=== PATIENT | female | born 1930 | race Caucasian/White ===

== ENCOUNTER → 2016-05-14 | Outpatient (CLI) | payer OTHER ==
[~2016-05-14] MED LIST: ALBUPOW26 IN; ALEN70TA55 OR; ASPI-247 PO; CALC-312 PO; FLUT110A IN; LEVO125T6 PO; MECL-87 PO; NITRSPR10 SL; TRAV0.00 OP; TRIATAB3 PO
[2016-05-14 09:41] LABS: Basophils # (auto) 0 uL; Basophils % (auto) 0.6 % (0.0-2.0); Eosinophils # (auto) 0.1 uL; Eosinophils % (auto) 1.9 % (0.0-7.0); Hematocrit 40.5 % (36.0-46.0); Hemoglobin 13.1 g/dL (12.2-16.2); Lymphocytes # (auto) 1.3 uL; Lymphocytes % (auto) 21.6 % (10.0-50.0); Mean Corpuscular Hemoglobin 28.3 pg (28.0-32.0); Mean Corpuscular Hgb Conc. 32.2 g/dL (32.0-36.0); Mean Corpuscular Volume 87.9 fL (80.0-100.0); Mean Platelet Volume 8.8 fL (7.4-10.4); Monocytes # (auto) 0.5 uL; Monocytes % (auto) 7.8 % (0.0-12.0); Neutrophils % (auto) 68.1 % (37.0-80.0); Platelet Count (auto) 337 10^3/uL (140-450); Red Cell Distribution Width 13.4 % (11.6-16.0); White Blood Cell 5.9 10^3/uL (4.4-10.8)
[2016-05-14 09:54] LABS: Urine Bilirubin Negative (Negative); Urine Blood Negative /uL (Negative); Urine Color Yellow (Yellow); Urine Glucose Normal (Normal); Urine Ketone Negative (Negative); Urine Mucus FEW (None Seen); Urine Nitrite Negative (Negative); Urine RBC 13 /hpf (0 - 4); Urine Squamous Epithelial Cell FEW /hpf (<5)
[2016-05-14 10:06] LABS: Albumin 3.6 g/dL (3.4-5.0); BUN/Creatinine Ratio 16.9; Bilirubin, Total 0.4 mg/dL (0.2-1.0); Calcium 8.6 mg/dL (8.5-10.1); Potassium 4.2 mmol/L (3.5-5.1); Total Protein 7.2 g/dL (6.4-8.2)
== END | disposition home or self-care (01) ==
LOC: LAB 08:49
PROVIDERS: ATTEND Family Medicine
DX: E78.00 Pure hypercholesterolemia, unspecified (principal); E03.9 Hypothyroidism, unspecified; N18.3 Chronic kidney disease, stage 3 (moderate); I10 Essential (primary) hypertension; Z00.00 Encounter for general adult medical examination without abnormal findings
CPT/HCPCS: 36415; 80053; 80061; 81001; 82607; 83615; 84443; 85025

== ENCOUNTER → 2016-05-22 | Outpatient (CLI) | payer OTHER | END | disposition home or self-care (01) | LOC: LAB 10:52 | PROVIDERS: ATTEND Internal Medicine | DX: E78.00 Pure hypercholesterolemia, unspecified (principal); E03.9 Hypothyroidism, unspecified; N18.3 Chronic kidney disease, stage 3 (moderate); I10 Essential (primary) hypertension; Z00.00 Encounter for general adult medical examination without abnormal findings | CPT/HCPCS: 82270 ==

== ENCOUNTER 2016-07-03 16:27 | Inpatient (IN) | payer OTHER ==
[~2016-07-03] VITALS: Ht 167.6 cm; Wt 64.6 kg
[2016-07-03 19:55] LABS: Urine Bilirubin Negative (Negative); Urine Blood Negative /uL (Negative); Urine Color Yellow (Yellow); Urine Glucose Normal (Normal); Urine Ketone Negative (Negative); Urine Nitrite Negative (Negative); Urine RBC 1 /hpf (0 - 4); Urine Squamous Epithelial Cell FEW /hpf (<5); Urine Urobilinogen Normal (Negative)
[2016-07-03 19:57] LABS: Albumin 3.3 g/dL (3.4-5.0); Anion Gap 10 (5-15); Aspartate Aminotransferase 24 U/L (15-37); BUN/Creatinine Ratio 16.9; Basophils # (auto) 0 uL; Basophils % (auto) 0.2 % (0.0-2.0); Blood Urea Nitrogen 13 mg/dL (7-18); Calcium 8.1 mg/dL (8.5-10.1); Carbon Dioxide 25 mmol/L (21-32); Chloride 103 mmol/L (98-107); Eosinophils # (auto) 0 uL; Eosinophils % (auto) 0.1 % (0.0-7.0); GFR African American 92 mL/min; GFR Non-African American 76 mL/min; Glucose 105 mg/dL (74-106); Hematocrit 36.1 % (36.0-46.0); Lymphocytes # (auto) 1.1 uL; Lymphocytes % (auto) 10.3 % (10.0-50.0); Mean Corpuscular Hemoglobin 28.7 pg (28.0-32.0); Mean Corpuscular Hgb Conc. 33.3 g/dL (32.0-36.0); Mean Corpuscular Volume 86.1 fL (80.0-100.0); Mean Platelet Volume 8.8 fL (7.4-10.4); Monocytes # (auto) 0.6 uL; Monocytes % (auto) 5.8 % (0.0-12.0); Neutrophils # (auto) 9.1 uL; Neutrophils % (auto) 83.6 % (37.0-80.0); Platelet Count (auto) 273 10^3/uL (140-450); Potassium 3.4 mmol/L (3.5-5.1); Red Cell Distribution Width 14.1 % (11.6-16.0); Sodium 138 mmol/L (136-145); White Blood Cell 10.9 10^3/uL (4.4-10.8)
[2016-07-03 20:02] LABS: Alkaline Phosphatase 86 U/L (45-117); Bilirubin, Total 0.7 mg/dL (0.2-1.0); Total Protein 6.8 g/dL (6.4-8.2)
[2016-07-03 20:46] LABS: INR 1.08 (0.9-1.15); Partial Thromboplastin Time 28.9 sec (22.64-33.71); Prothrombin Time 11.1 sec (9.37-12.3)
[2016-07-03] MEDS ORDERED: HYDROcodone-ACET 5/325MG TAB PO ONE (22:00)
[2016-07-03] MEDS ORDERED: ONDANSETRON HCL 4 MG/2 ML VIAL IV ONE (22:15)
[2016-07-03] MEDS ORDERED: MORPHINE SULFATE 4 MG/ML SYRG IV ONE (22:15)
[2016-07-03] MEDS ORDERED: SODIUM CHLORIDE 0.9% 1,000 ML IV ONE (22:15)
[2016-07-03] MEDS ORDERED: ONDANSETRON HCL 4 MG/2 ML VIAL IV PRN (23:45)
[2016-07-03] MEDS ORDERED: MORPHINE SULF INJ 2 MG/ML SYRINGE 1ML IV PRN (23:45)
[2016-07-03] MEDS ORDERED: LORazepam 0.5 MG TAB PO PRN (23:45)
[2016-07-03] MEDS ORDERED: PANTOPRAZOLE SODIUM 40 MG/10 ML VIAL IV ONE (23:45)
[2016-07-03] MEDS ORDERED: SODIUM CHLORIDE 0.9% 1,000 ML IV SCH (23:48)
[2016-07-04] VITALS (7 sets, daily range): BP systolic 107–139; BP diastolic 48–85
[2016-07-04] MEDS ORDERED: LACTULOSE 20Gm/30ML SOLN PO PRN
[2016-07-04] MEDS ORDERED: HCTZ25T PO (04:30)
[2016-07-04] MEDS ORDERED: NITR2.5C PO (04:30)
[2016-07-04] MEDS ORDERED: ASPI81CH43 PO (04:30)
[2016-07-04] MEDS ORDERED: NIAC50TA4 PO (04:30)
[2016-07-04] MEDS ORDERED: LEVO150T10 PO (04:30)
[2016-07-04] MEDS ORDERED: LORA-655 PO (04:30)
[2016-07-04] MEDS ORDERED: ATOR10TA PO (04:30)
[2016-07-04] MEDS ORDERED: LATA0.0015 EACHEYE (04:30)
[2016-07-04] MEDS ORDERED: DILT120T3 PO (04:30)
[2016-07-04 05:40] LABS: Basophils # (auto) 0 uL; Basophils % (auto) 0.5 % (0.0-2.0); Eosinophils # (auto) 0.2 uL; Eosinophils % (auto) 2.6 % (0.0-7.0); Hematocrit 33.1 % (36.0-46.0); Hemoglobin 11.1 g/dL (12.2-16.2); Lymphocytes % (auto) 14.7 % (10.0-50.0); Mean Corpuscular Hgb Conc. 33.5 g/dL (32.0-36.0); Mean Corpuscular Volume 86.6 fL (80.0-100.0); Mean Platelet Volume 8.4 fL (7.4-10.4); Monocytes # (auto) 0.5 uL; Monocytes % (auto) 7.3 % (0.0-12.0); Neutrophils # (auto) 5.1 uL; Neutrophils % (auto) 74.9 % (37.0-80.0); Platelet Count (auto) 243 10^3/uL (140-450); Red Cell Distribution Width 13.9 % (11.6-16.0); White Blood Cell 6.9 10^3/uL (4.4-10.8)
[2016-07-04] MEDS: ALBUTEROL SULF 2.5 MG/0.5ML(0.5%) NEB SOLN NEB SCH ×2 (05:57→10:12)
[2016-07-04 06:01] LABS: Albumin 2.7 g/dL (3.4-5.0); BUN/Creatinine Ratio 15.3; Calcium 7.1 mg/dL (8.5-10.1)
[2016-07-04 06:04] LABS: Bilirubin, Total 0.6 mg/dL (0.2-1.0); Total Protein 5.7 g/dL (6.4-8.2)
[2016-07-04] MEDS: LEVOTHYROXINE SODIUM 112 MCG TAB PO SCH (06:27)
[2016-07-04] MEDS: LEVOTHYROXINE SODIUM 25 MCG TAB PO SCH (06:28)
[2016-07-04 06:39] LABS: Potassium 2.9 mmol/L (3.5-5.1)
[2016-07-04] MEDS ORDERED: POTASSIUM CHL 20 Meq TABLET PO ONE (06:45)
[2016-07-04] MEDS ORDERED: LEVOTHYROXINE SODIUM 25 MCG TAB PO SCH (07:00)
[2016-07-04] MEDS: ASPirin 81 mg TAB PO SCH (09:22)
[2016-07-04] MEDS: NIACIN 100 MG TAB PO SCH (09:29)
[2016-07-04] MEDS: NITROGLYCERIN 2.5 MG CAP PO SCH ×2 (09:29→21:41)
[2016-07-04] MEDS: HCTZ 25 MG TAB PO SCH (09:29)
[2016-07-04] MEDS: ENOXAPARIN SOD 40 MG/0.4 ML SYRINGE SC SCH (09:30)
[2016-07-04] MEDS ORDERED: PANTOPRAZOLE SODIUM 40 MG/10 ML VIAL IV SCH (10:00)
[2016-07-04] MEDS ORDERED: ENOXAPARIN SOD 30 MG/0.3 ML SYRINGE SC SCH (10:00)
[2016-07-04] MEDS ORDERED: HYDROcodone-ACET 5/325MG TAB PO PRN (11:45)
[2016-07-04] MEDS ORDERED: ALBUTEROL SULF 2.5 MG/0.5ML(0.5%) NEB SOLN NEB PRN (14:00)
[2016-07-04] MEDS: AZTREONAM 1GM INJ 1 GM in D5W 5% 50 ML IV SCH ×2 (15:17→20:01)
[2016-07-04] MEDS: CALCIUM W/VIT D (600MG/400IU) TAB PO SCH (17:52)
[2016-07-04] MEDS: LATANOPROST 0.005 % OPTH(EYE) SOL 2.5ML EACHEYE SCH (21:40)
[2016-07-04] MEDS: ATORVASTATIN 20 MG TAB PO SCH (21:41)
[2016-07-04] MEDS: ACETAMINOPHEN 325 MG TAB PO PRN (21:42)
[2016-07-05] MEDS: AZTREONAM 1GM INJ 1 GM in D5W 5% 50 ML IV SCH ×3 (03:55→20:12)
[2016-07-05 04:40] VITALS: BP 151/71
[2016-07-05] MEDS: LEVOTHYROXINE SODIUM 112 MCG TAB PO SCH (06:37)
[2016-07-05] MEDS: LEVOTHYROXINE SODIUM 25 MCG TAB PO SCH (06:38)
[2016-07-05] MEDS: CALCIUM W/VIT D (600MG/400IU) TAB PO SCH ×2 (07:51→17:32)
[2016-07-05 08:00] VITALS: BP 152/61
[2016-07-05] MEDS: ASPirin 81 mg TAB PO SCH (10:17)
[2016-07-05] MEDS: POTASSIUM CHL 20 Meq TABLET PO SCH (10:18)
[2016-07-05] MEDS: HCTZ 25 MG TAB PO SCH (10:18)
[2016-07-05] MEDS: NITROGLYCERIN 2.5 MG CAP PO SCH ×2 (10:19→22:29)
[2016-07-05] MEDS: ENOXAPARIN SOD 40 MG/0.4 ML SYRINGE SC SCH (10:19)
[2016-07-05] MEDS: NIACIN 100 MG TAB PO SCH (10:19)
[2016-07-05] MEDS ORDERED: ACETAMINOPHEN 325 MG TAB PO ONE (11:46)
[2016-07-05] MEDS: ACETAMINOPHEN 325 MG TAB PO PRN (11:48)
[2016-07-05 13:00] VITALS: BP 133/64
[2016-07-05 17:00] VITALS: BP 127/61
[2016-07-05 22:00] VITALS: BP 146/72
[2016-07-05] MEDS: LATANOPROST 0.005 % OPTH(EYE) SOL 2.5ML EACHEYE SCH (22:00)
[2016-07-05] MEDS: ATORVASTATIN 20 MG TAB PO SCH (22:29)
[2016-07-06] MEDS: AZTREONAM 1GM INJ 1 GM in D5W 5% 50 ML IV SCH ×3 (04:01→20:47)
[2016-07-06 05:00] VITALS: BP 144/71
[2016-07-06] MEDS: LEVOTHYROXINE SODIUM 25 MCG TAB PO SCH (06:58)
[2016-07-06] MEDS: LEVOTHYROXINE SODIUM 112 MCG TAB PO SCH (06:58)
[2016-07-06] MEDS: CALCIUM W/VIT D (600MG/400IU) TAB PO SCH ×2 (07:47→18:39)
[2016-07-06 10:29] VITALS: BP 145/87
[2016-07-06] MEDS: ASPirin 81 mg TAB PO SCH (11:23)
[2016-07-06] MEDS: NIACIN 100 MG TAB PO SCH (11:23)
[2016-07-06] MEDS: POTASSIUM CHL 20 Meq TABLET PO SCH (11:28)
[2016-07-06] MEDS: HCTZ 25 MG TAB PO SCH (11:28)
[2016-07-06] MEDS: SODIUM CHLORIDE 0.9% 1,000 ML IV SCH ×2 (11:29→20:00)
[2016-07-06] MEDS: NITROGLYCERIN 2.5 MG CAP PO SCH ×2 (11:30→23:00)
[2016-07-06] MEDS: ENOXAPARIN SOD 40 MG/0.4 ML SYRINGE SC SCH (11:30)
[2016-07-06 13:11] VITALS: BP 132/78
[2016-07-06] MEDS: LATANOPROST 0.005 % OPTH(EYE) SOL 2.5ML EACHEYE SCH (22:00)
[2016-07-06 22:17] VITALS: BP 111/43
[2016-07-06] MEDS: ATORVASTATIN 20 MG TAB PO SCH (23:00)
[2016-07-07 00:06] VITALS: BP 111/43
[2016-07-07] MEDS: AZTREONAM 1GM INJ 1 GM in D5W 5% 50 ML IV SCH ×2 (04:35→12:00)
[2016-07-07 04:54] VITALS: BP 136/56
[2016-07-07] MEDS: SODIUM CHLORIDE 0.9% 1,000 ML IV SCH (06:00)
[2016-07-07] MEDS: LEVOTHYROXINE SODIUM 25 MCG TAB PO SCH (07:06)
[2016-07-07] MEDS: LEVOTHYROXINE SODIUM 112 MCG TAB PO SCH (07:06)
[2016-07-07 08:00] VITALS: BP 144/65
[2016-07-07 09:00] VITALS: BP_SYST 104; BP_SYST 144; BP_DIAS 65; BP_DIAS 74
[2016-07-07] MEDS: ENOXAPARIN SOD 40 MG/0.4 ML SYRINGE SC SCH (09:05)
[2016-07-07] MEDS: NIACIN 100 MG TAB PO SCH (09:06)
[2016-07-07] MEDS: POTASSIUM CHL 20 Meq TABLET PO SCH (09:06)
[2016-07-07] MEDS: NITROGLYCERIN 2.5 MG CAP PO SCH (09:06)
[2016-07-07] MEDS: HCTZ 25 MG TAB PO SCH (09:06)
[2016-07-07] MEDS: ASPirin 81 mg TAB PO SCH (09:06)
[2016-07-07] MEDS: CALCIUM W/VIT D (600MG/400IU) TAB PO SCH (09:06)
[2016-07-07 13:00] VITALS: BP 104/74
[2016-07-07 16:31] VITALS: BP 144/65
== END 2016-07-07 17:40 | disposition home or self-care (01) | DRG 535 ==
LOC: EDBD 16:27 → ER 16:27 → TELE 16:28 → TELE-CENTR 07-04 02:15
PROVIDERS: ADMIT Family Medicine; ATTEND Internal Medicine
DX: S32.591A Other specified fracture of right pubis, initial encounter for closed fracture (principal); S32.402A Unspecified fracture of left acetabulum, initial encounter for closed fracture; E46 Unspecified protein-calorie malnutrition; N39.0 Urinary tract infection, site not specified; M25.551 Pain in right hip; M25.552 Pain in left hip; I10 Essential (primary) hypertension; M47.896 Other spondylosis, lumbar region; M54.5 Low back pain; E03.9 Hypothyroidism, unspecified; E87.6 Hypokalemia; M81.0 Age-related osteoporosis without current pathological fracture; J44.9 Chronic obstructive pulmonary disease, unspecified; M48.00 Spinal stenosis, site unspecified; I25.10 Atherosclerotic heart disease of native coronary artery without angina pectoris; E78.5 Hyperlipidemia, unspecified; W10.9XXA Fall (on) (from) unspecified stairs and steps, initial encounter; Z88.1 Allergy status to other antibiotic agents; Z88.0 Allergy status to penicillin; Z88.2 Allergy status to sulfonamides; Z88.8 Allergy status to other drugs, medicaments and biological substances; Z86.73 Personal history of transient ischemic attack (TIA), and cerebral infarction without residual deficits; Z90.710 Acquired absence of both cervix and uterus; Z90.89 Acquired absence of other organs; Z68.23 Body mass index [BMI] 23.0-23.9, adult; Z79.899 Other long term (current) drug therapy; Z79.82 Long term (current) use of aspirin; Y93.89 Activity, other specified; Y92.009 Unspecified place in unspecified non-institutional (private) residence as the place of occurrence of the external cause; Y99.8 Other external cause status
CPT/HCPCS: 36415; 51702; 70450; 71010; 72128; 72131; 72192; 73502; 74176; 80053; 80061; 80320; 81001; 82306; 83735; 84132; 84484; 85025; 85610; 85730; 87086; 93005; 94640; 96361; 96374; 97001; 97116; 97530; C9113; J2405; J7060